=== PATIENT | male | born 1945 | race Caucasian/White ===

== ENCOUNTER 2018-07-06 13:37 | Day surgery (SDC) | payer OTHER ==
[2018-07-06 14:39] LABS: ADD MAN DIFF? NO
[2018-07-06 14:46] LABS: BASOPHIL # 0.1 10^3/ul (0.0-0.1); BASOPHILS % 0.8 % (0.0-2.0); EOSINOPHILS # 0.2 10^3/ul (0.0-0.5); HEMATOCRIT 44.6 % (42.0-52.0); LYMPHOCYTES # 1.4 10^3/ul (0.8-2.9); LYMPHOCYTES % 24.1 % (15.0-51.0); MEAN CORPUSCULAR HEMOGLOBIN 29.4 pg (29.0-33.0); MEAN CORPUSCULAR HGB CONC 33.6 g/dl (32.0-37.0); MEAN CORPUSCULAR VOLUME 87.3 fl (82.0-101.0); MEAN PLATELET VOLUME 11.5 fl (7.4-10.4); MONOCYTE # 0.6 10^3/ul (0.3-0.9); MONOCYTES % 10.8 % (0.0-11.0); NEUTROPHIL # 3.6 10^3/ul (1.6-7.5); PLATELET COUNT 167 10^3/UL (140-415); RED BLOOD COUNT 5.11 10^6/ul (4.70-6.10); RED CELL DISTRIBUTION WIDTH 13.7 % (11.5-14.5)
[2018-07-06 14:46] LABS: WHITE BLOOD COUNT 5.9 10^3/ul (4.8-10.8)
[2018-07-06 14:59] LABS: ANION GAP 12 (5-13); BLOOD UREA NITROGEN 20 mg/dl (7-20); CALCIUM 9.7 mg/dl (8.4-10.2); CARBON DIOXIDE 29 mmol/L (21-31); CHLORIDE 100 mmol/L (97-110); GLUCOSE 148 mg/dl (70-220); POTASSIUM 4.2 mmol/L (3.5-5.1); SODIUM 141 mmol/L (135-144)
[2018-07-06 15:02] LABS: CREATININE 1.29 mg/dl (0.61-1.24)
[2018-07-06] MEDS ORDERED: HYDROmorphONE 1 MG/5 ML IV SYRINGE IV ×2 (17:00)
[2018-07-06] MEDS ORDERED: FENTAnyl 50 MCG/ML VIAL IV ×2 (17:00)
[2018-07-06] MEDS ORDERED: MEPERIDINE 25 MG INJ IV (17:00)
[2018-07-06] MEDS ORDERED: ALBUTEROL 0.083% (NEB) 2.5 MG/3 ML AMP HHN (17:00)
[2018-07-06] MEDS ORDERED: METOCLOPRAMIDE 10 MG INJ IV (17:00)
[2018-07-06] MEDS ORDERED: LABETALOL HCL 20MG INJ IV (17:00)
[2018-07-06] MEDS ORDERED: DIPHENHYDRAMINE 50 MG INJ IV (17:00)
[2018-07-06] MEDS ORDERED: ONDANSETRON 4 MG INJ IV (17:00)
[2018-07-06] MEDS ORDERED: LIDOCAINE 100 MG SYRINGE (17:56)
[2018-07-06] MEDS ORDERED: SUGAMMADEX SODIUM 200 MG/2 ML VIAL IV ×2 (17:56→19:47)
[2018-07-06] MEDS ORDERED: ROCURONIUM 50 MG INJ (17:56)
[2018-07-06] MEDS ORDERED: SUCCINYLCHOLINE CHLORIDE 100 MG/5 ML SYG IV (17:56)
[2018-07-06] MEDS ORDERED: PROPOFOL 20 ML (17:56)
[2018-07-06] MEDS ORDERED: IOHEXOL 300MG/ML 30 ML BTL (18:11)
== END 2018-07-06 19:46 | disposition home or self-care (01) ==
LOC: GIL 13:37 → SDS 13:37 → GIL 19:46
DX: K80.60 Calculus of gallbladder and bile duct with cholecystitis, unspecified, without obstruction (principal); I10 Essential (primary) hypertension; E11.9 Type 2 diabetes mellitus without complications; E66.9 Obesity, unspecified; Z68.27 Body mass index [BMI] 27.0-27.9, adult
CPT/HCPCS: 43264; 74330; 80048; 82962; 85025; 93005